=== PATIENT | female | born 1950 | race American Indian/Alaskan Native ===

== ENCOUNTER 2016-10-11 08:07 | Outpatient (CLI) | payer MEDICARE ==
--- NOTE | 2016-10-12 13:39 | Magnetic Resonance Report ---
BILATERAL BREAST MRI WITHOUT AND WITH CONTRAST: 10/11/16 08:07:00 CLINICAL: Breast cancer survivor status post right partial mastectomy, radiation therapy and chemotherapy for triple negative stage 2 breast cancer. MRI was recommended to evaluate the right axilla after a 07/10/15 mammogram. She also has a history of a brownish right nipple discharge. Status post left stereotactic breast biopsy for calcifications in April 2014. COMPARISON:08/26/16 bilateral mammogram.. TECHNIQUE: Axial 1.0-mm T1 without, axial high resolution 2.0-mm T2 and axial 1.0-mm dynamic Vibrant high-resolution postcontrast T1 fat saturation sequences on a 1.5 Kailey magnet. The examination was performed with an 8 channel dedicated [place] breast coil. Post processing with CAD and subtraction was performed on an [employer] workstation. 20 cc of Multihance was injected without incident for the contrast portion of the exam. Consent was obtained prior to the administration of the contrast. FINDINGS: Right: Minimal background parenchymal enhancement. No mass or suspicious enhancement. No suspicious right axillary or right internal mammary lymph nodes. Left: Minimal background parenchymal enhancement. No mass or suspicious enhancement. An irregular spiculated mass of the lower inner right breast demonstrates no enhancement and correlates with a post biopsy scar with a localizer clip. It is most prominent on the T2-weighted sequence. This irregular nonenhancing mass also correlates with the mammographic density at a biopsy site which was less prominent on the more recent mammogram than on prior exams. No suspicious left axillary or left internal mammary lymph nodes. Several small left axillary lymph nodes have central fat and benign morphology. IMPRESSION: Negative study status post right partial mastectomy and status post benign left breast biopsies. Benign left lower inner post biopsy scar. Recommend routine mammographic screening. BI-RADS 2 -- Benign
== END 2016-10-11 08:08 | disposition home or self-care (01) ==
LOC: SPVIMAG 08:07
PROVIDERS: ATTEND Surgery
DX: N63 Unspecified lump in breast (principal); N64.52 Nipple discharge; I11.0 Hypertensive heart disease with heart failure; I50.9 Heart failure, unspecified; E78.00 Pure hypercholesterolemia, unspecified; E11.9 Type 2 diabetes mellitus without complications; Z90.11 Acquired absence of right breast and nipple; Z85.3 Personal history of malignant neoplasm of breast
CPT/HCPCS: 0159T; A9577; C8908; 77059